=== PATIENT | female | born 1990 | race Caucasian/White ===

== ENCOUNTER 2018-03-16 12:49 | Inpatient (IN) ==
--- NOTE | 2018-03-16 14:00 | ED ---
History of Present Illness Primary Care Physician: No Primary Care Physician History of Present Illness: CC: LOF, contractions 27 year-old , IUP at 40.2 care uncomplicated per patient report The patient presents complaining of the onset of contractions at 3:30 AM. She reports that they were mild but have increased in intensity and frequency since. She reports that they have become significantly more painful since 9:30 AM and are regular at every 4-5 minutes. There were no alleviating factors and no attempted treatments. She reports that she has had increased discharge since 8 AM this morning including some discharge has been pink tinged. She reports that at 1030 she felt a big gush of clear fluid and has continued to leak since. She reports good movement. She denies any vaginal bleeding. 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 This includes certification that hospital inpatient services are reasonable and necessary and in the case of services not specified as inpatient-only under 42 CFR 419.22(n), that they are appropriately provided as inpatient services in accordance to with the 2-midnight benchmark under 43 CFR 412.3(e) Review of Systems All other systems reviewed negative except as stated in HPI Medications and Allergies Allergies Allergy/AdvReac Type Severity Reaction Status Date / Time No Known Allergies Allergy Verified 03/16/18 13:40 Home Medications Medication Instructions Recorded Confirmed Type [id number] acid 1 tab DAILY 03/16/18 03/16/18 History [ Multi] Exam Vital signs: Vital Signs 03/16/18 13:23 Temperature 99.2 F Pulse Rate 92 H Respiratory Rate 16 Blood Pressure 119/72 Narrative: GENERAL: Well-nourished, well-developed patient. SKIN: Warm and dry. HEAD: Normocephalic and atraumatic. EYES: No scleral icterus. No injection or drainage. ENT: No nasal drainage noted. Mucous membranes pink. Airway patent. NECK: Supple, trachea midline. No JVD. CARDIOVASCULAR: Regular rate and rhythm without murmurs, gallops, or rubs. RESPIRATORY: Breath sounds equal bilaterally. No accessory muscle use. BREASTS: Deferred ABDOMEN/GI: Abdomen soft, non-tender, bowel sounds present, no rebound, no guarding Gravid GENITOURINARY: Normal EGBUS, no cervical or vaginal masses noted, grossly normal rugate. The patient has gross evidence of R OM. SVE 2/80/-3, posterior. Cephalic confirmed by U/S. FHT's: heart tones are in the 130s with moderate long-term variability, good accelerations, no decelerations noted. This reactive NST and category 1 heart rate tracing. Indication for NST is postterm/aching of fluid final diagnosis with reassuring testing and gross rupture of membranes, early labor. EXTREMITIES: No cyanosis or edema. BACK: Nontender without obvious deformity. NEUROLOGICAL psychiatric: Awake and alert. Oriented 3. Normal memory/affect. Grossly normal range of motion. Motor and sensory grossly within normal limits. Five out of 5 muscle strength in all muscle groups. Normal speech. Assessment and Plan - Plan Assessment/plan: 1. IUP at 40.2 2. SROM: Patient has grossly ruptured membranes and appears to be in early labor with painful contractions. Her SVE is 2/80. Dr. Dominguez is covering for Dr. Hutson and was notified of the patient's status and need for admission. Will admit to Dr. Dominguez. Dr. Dominguez arrived and assumed care for the patient. 3. well-being: Reassuring testing with reactive NST and category 1 heart rate tracing. Continue monitoring. 4. GBS negative as per patient report Discharge Plan - Discharge Disposition Patient Disposition: 30 Still Patient - Physicians Team ED Provider: Nuvia Carvajal Primary Care Provider: Primary Care Hussein,Masha
[2018-03-16] MEDS ORDERED: Naloxone Inj 0.4 MG/ML Vial IV.PUSH PRN ×2 (14:05→14:57)
[2018-03-16] MEDS ORDERED: Sodium Chlor 0.9% Inj 500 ML IV.SIG PRN ×2 (14:05→14:57)
[2018-03-16] MEDS ORDERED: Oxytocin 30 Units/500ml Premix 30 UNITS/500 ML BAG IV.SIG ONE ×2 (14:05→15:30)
[2018-03-16] MEDS ORDERED: fentaNYL Citrate Inj 100 MCG/2 ML Ampul IV.PUSH PRN ×4 (14:05→14:57)
[2018-03-16] MEDS ORDERED: Sod Chloride 0.9% Inj 1,000 ML IV.CONT PRN ×2 (14:05→14:57)
[2018-03-16] MEDS ORDERED: Citric Acid/Sodium Citrate Liq 30 ML UDC PO SCH ×2 (14:15→15:00)
[2018-03-16 14:36] LABS: Baso % (Auto) 0.1 % (0.0-2.0); Eos # (Auto) 0.1 th/mm3 (0.0-0.4); Eos % (Auto) 0.6 % (0.0-4.0); Hematocrit 44.1 % (35.0-46.0); Hemoglobin 15.1 gm/dL (11.6-15.3); Lymph # (Auto) 1.8 th/mm3 (1.0-4.8); Lymph % (Auto) 15.3 % (9.0-44.0); Mean Corpuscular HGB Conc 34.3 % (32.0-36.0); Mean Corpuscular Hemoglobin 31.9 pg (27.0-34.0); Mono # (Auto) 0.7 th/mm3 (0.0-0.9); Mono % (Auto) 6.2 % (0.0-8.0); Neut % (Auto) 77.8 % (16.0-70.0); Platelet Count 176 th/mm3 (150-450); Red Blood Count 4.74 mil/mm3 (4.00-5.30); Red Cell Distribution Width 13.6 % (11.6-17.2); White Blood Count 11.5 th/mm3 (4.0-11.0)
--- NOTE | 2018-03-16 14:39 | MH ---
cc: Brennan Dominguez MD DATE OF ADMISSION: 03/16/2018 DATE OF ADMISSION: 03/16/2018 TIME: 2:15 p.m. ADMITTING DIAGNOSIS: Term with spontaneous rupture of membranes. HISTORY OF PRESENT ILLNESS: The patient is a 27-year-old white female, para 0-0-1-0, with an EDC of 03/14/2018. She had spontaneous rupture of membranes at 10:30 a.m. today, clear fluid and is now admitted for delivery. PAST MEDICAL HISTORY: She had one previous , a miscarriage at 8 weeks. MEDICATIONS: Vitamins. ALLERGIES: NONE. TRANSFUSIONS: None. SURGERIES: None. SOCIAL HISTORY: She is . 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 Alcohol, tobacco and drugs are none. FAMILY HISTORY: Noncontributory. PHYSICAL EXAMINATION: GENERAL: A well-nourished, well-developed white female. VITAL SIGNS: Stable. HEENT: Normal. CHEST: Clear. HEART: Regular rate. BREASTS: Symmetrical. ABDOMEN: Gravid. EFW is 3600 grams. PELVIC: The cervix is 1-2, 70% vertex -2, ruptured. IMAGING STUDIES: Dr. Carvajal has performed a bedside ultrasound confirming vertex presentation. LABORATORY DATA: Her GBS culture is negative. ASSESSMENT AND PLAN: She is now admitted for delivery. She has a utility aide. We will observe her for labor. I reviewed her plan. I discussed the option to start Pitocin if she fails to develop labor at this time. She would like to wait for up to 6-12 hours post rupture. Should she have distress or signs of infection or compromise or failure to progress, she is aware she will need . I discussed options for pain relief ranging from natural childbirth, IV medications, and epidurals with she and her . I explained my coverage for Dr. Dove this weekend. MD BEAU Mcgarry/steven , 02:19 PM , 02:26 PM
[2018-03-16 15:45] LABS: Bilirubin,Urine Negative (Negative); Clarity,Urine Hazy (Clear); Color,Urine Yellow (Yellw/Straw); Glucose,Urine (UA) Negative (Negative); Leukocyte Esterase,Urine Negative (Negative); Mucus,Urine Few /lpf (Occasional); Nitrite,Urine Negative (Negative); Specific Gravity,Urine 1.016 (1.002-1.035); Squamous Epithelial Cell,Urine 3 /hpf (0-5)
[2018-03-16 15:50] LABS: Amphetamine Urine With Conf Neg (Neg); Benzodiazepine Urine With Conf Neg (Neg)
[2018-03-16] MEDS ORDERED: Oxytocin 30 Units/500ml Premix 30 UNITS/500 ML BAG IV.SIG PRN (19:00)
[2018-03-16] MEDS ORDERED: fentaNYL 2MCG-Bupiv 0.125% Epi 150 ML EPIDURAL ONE (21:45)
[2018-03-16] MEDS ORDERED: fentaNYL Citrate Inj 100 MCG/2 ML Ampul EPIDURAL ONE (23:05)
[2018-03-16] MEDS ORDERED: fentaNYL 2MCG-Bupiv 0.125% Epi 150 ML EPIDURAL PRN (23:05)
[2018-03-17] MEDS ORDERED: Benzocaine 20% Top Spray 60 ML Can TOPICAL PRN (07:52)
[2018-03-17] MEDS ORDERED: Oxytocin 30 Units/500ml Premix 30 UNITS/500 ML BAG IV.CONT PRN (07:52)
[2018-03-17] MEDS ORDERED: Witch Hazel 50%/Glyderin 12.5% 40 Pad Jar RECTAL PRN (07:52)
[2018-03-17] MEDS ORDERED: Naloxone Inj 0.4 MG/ML Vial IV.PUSH PRN (07:52)
[2018-03-17] MEDS ORDERED: Bisacodyl 10 MG Supp RECTAL PRN (07:52)
[2018-03-17] MEDS ORDERED: Acetaminophen 325 MG Tablet PO PRN (07:52)
[2018-03-17] MEDS ORDERED: Ketorolac Inj 30 MG/ML (IVP) Vial IV.PUSH PRN (10:02)
[2018-03-17] MEDS: Senna/Docusate Sodium 8.6/50 MG Tablet PO SCH (10:10)
[2018-03-17] MEDS ORDERED: Ketorolac Inj 30 MG/ML (IVP) Vial IV.PUSH ONE (10:15)
--- NOTE | 2018-03-17 10:17 | MP ---
cc: Brennan Dominguez MD, Christine C MD DATE OF OPERATION: 03/17/2018 DELIVERY SUMMARY: The patient is a 27-year-old white female, para 0-0-1-0, progressed to a spontaneous vaginal delivery over a midline episiotomy. A viable vigorous male, Apgars 8 and 9, weight pending. ESTIMATED BLOOD LOSS: About 300 mL. ANESTHESIA: Epidural and 10 mL of local. Post-delivery, the internal vaginal tear had connected up to the episiotomy, was repaired in a running locking 2-0 chromic. The perineum was repaired in layers of interrupted and running 2-0 chromic. Post-inspection revealed no further bleeding. Cervix intact. Placenta delivered intact. Rectal was normal. Sponge and instrument counts were normal. MD BEAU Mcgarry/lata , 07:58 AM , 08:02 AM TANYA
[2018-03-17] MEDS ORDERED: Measles/Mumps/Rubella Vaccine Inj 0.5 ML Vial SQ ONE (16:00)
[2018-03-17] MEDS ORDERED: Diphtheria/Tetanus/Pertussis Vaccine Inj 0.5 ML Syringe IM ONE (16:00)
[2018-03-17] MEDS ORDERED: Zolpidem Tartrate 5 MG Tablet PO PRN (21:00)
[2018-03-18] MEDS: Senna/Docusate Sodium 8.6/50 MG Tablet PO SCH ×3 (00:56→21:34)
--- NOTE | 2018-03-18 10:08 | P.PNOB ---
Subjective Post day: 1 Interval history: Pt doing well, good pain control, no co Objective Vital Signs/I&O: Vital Signs 03/17/18 20:00 03/18/18 08:00 Temperature 98.3 F 97.6 F Pulse Rate 97 H 72 Respiratory Rate 16 18 Blood Pressure 92/57 L 93/59 L Intake & Output 03/17/18 03/18/18 03/18/18 18:59 06:59 18:59 Intake Total 1000 / 1000 Balance 1000 / 1000 Intake: IV 1000 / 1000 LR 1000 mL Inj 1,000 ML @ 125 1000 / 1000 mls/hr IV.CONT .Q8H [facility] Rx#: [id number] Result Diagrams: 03/16/18 14:00 Objective Remarks: GENERAL: Well-nourished, well-developed patient. CARDIOVASCULAR: Regular rate and rhythm without murmurs, gallops, or rubs. RESPIRATORY: Breath sounds equal bilaterally. No accessory muscle use. ABDOMEN/GI: Abdomen soft, non-tender. Fundus: Firm, non-tender at umbilicus. GENITOURINARY: Light to moderate bleeding. EXTREMITIES: No cyanosis or edema, non-tender, without signs of DVT. 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 [facility] Stop: 03/20/18 14:59 Lactated Ringer's (Lr 1000 Ml Inj) 1,000 mls @ 125 mls/hr IV.CONT .Q8H [facility] Last Admin: 03/17/18 07:25 Dose: 125 mls/hr Lactated Ringer's (Lr 1000 Ml Inj) 1,000 mls @ 3,000 mls/hr IV.SIG UNSCH PRN PRN Reason: compromise or epidural Sodium Chloride (Ns Inj) 500 mls @ 1,000 mls/hr IV.SIG UNSCH PRN PRN Reason: SEE LABEL COMMENTS Sodium Chloride (Ns Inj) 1,000 mls @ 100 mls/hr IV.CONT .Q10H PRN PRN Reason: SEE LABEL COMMENTS Fentanyl/Bupivacaine/Sodium Chlor (Fentanyl 2 Mcg-Bupiv 0.125% Epi) 150 mls @ 8 mls/hr EPIDURAL PRN PRN PRN Reason: for Labor Pain Last Admin: 03/16/18 22:15 Dose: 8 mls/hr Oxytocin (Pitocin 30 Units/Ns 500 Ml Premix) 30 units in 500 mls @ 100 mls/hr IV.CONT UNSCH PRN PRN Reason: Heavy bleeding Ibuprofen (Motrin) 800 mg PO Q8H PRN PRN Reason: For Cramping Last Admin: 03/18/18 09:03 Dose: 800 mg Lactulose (Lactulose Liq) 30 ml PO DAILY PRN PRN Reason: SEVERE CONSITIPATION Mineral Oil (Muri-Lube Oil) 10 ml TOPICAL UNSCH PRN PRN Reason: PRN perineal massage Naloxone HCl (Narcan Inj) 0.1 mg IV.PUSH Q2M PRN PRN Reason: for opiate reversal Ondansetron HCl (Zofran Odt) 4 mg PO Q6H PRN PRN Reason: NAUSEA OR VOMITING Oxycodone/Acetaminophen (Percocet 5/325 Mg) 1 tab PO Q4H PRN PRN Reason: PAIN SCALE 3 TO 5 Oxycodone/Acetaminophen (Percocet 5/325 Mg) 2 tab PO Q4H PRN PRN Reason: PAIN SCALE 6 TO 10 Senna/Docusate Sodium (Aimee-Colace) 1 tab PO BID [facility] Last Admin: 03/18/18 09:03 Dose: 1 tab Sennosides (Senokot) 17.2 mg PO Q12H PRN PRN Reason: Moderate Constipation Sodium Chloride (Ns Flush) 2 ml IV.FLUSH BID [facility] Last Admin: 03/18/18 00:56 Dose: Not Given Sodium Chloride (Ns Flush) 2 ml IV.FLUSH UNSCH PRN PRN Reason: FLUSH AFTER USING IV ACCESS Witch Summer/Glycerin (Tucks Pads) 1 applicatio RECTAL QID PRN PRN Reason: HEMORRHOIDS Zolpidem Tartrate (Ambien) 5 mg PO HS PRN PRN Reason: SLEEP Assessment and Plan - Plan Discharge Planning: PPD # 1 s/p doing well, routine care
--- NOTE | 2018-03-19 13:38 | P.DS ---
Date of admission: 03/16/18 13:47 Primary care physician: Masha Primary Care Physician Anticipated date of discharge: 03/19/18 Brief History from admission: Pt admitted at term with SROM, labor augmentation followed, normal vaginal delivery followed, benign post course , dc home ppd 2 DS: Summary Hospital Course: benign post course, uneventful labor and delivery - Time Spent with Patient Total time spent providing and/or coordinating discharge services: Less than 30 minutes Exam Vital signs: Vital Signs 03/18/18 20:00 03/19/18 08:43 03/19/18 08:56 Temperature 99.0 F 97.9 F Pulse Rate 76 58 L Respiratory Rate 18 16 Blood Pressure 98/60 L 94/64 L Results Procedures completed during hospitalization: vaginal delivery Discharge Plan - Discharge Disposition Patient Disposition: 01 Discharge Home - Discharge Condition Condition: Stable - Discharge Order Discharge Orders: Discharge Order (Routine); Ordered 03/19/18 Ordered By: Lani Hutson - Physicians Team Primary Care Provider: Primary Care Masha Savage Attending Provider: Brennan Dominguez
== END 2018-03-19 19:25 | disposition home or self-care (01) ==
LOC: EDBD → HOBED 12:49 → H2E 13:47 → H1EA 03-17 09:31
PROVIDERS: ADMIT Obstetrics & Gynecology; ATTEND Obstetrics & Gynecology